=== PATIENT | female | born 1960 | race Caucasian/White ===

== ENCOUNTER 2020-06-22 07:02 | Outpatient (CLI) | payer OTHER ==
[~2020-06-22 07:02] MED LIST: BIOT1TAB2 PO; CA C1TAB39 PO; CHOL10002 PO; CYCL10TA2 PO; ESTR0.5T PO; ONDA4TAB10 PO; POLY119P4 PO; SENN8.6T15 PO; SPIR25TA5 PO; VITA1CAP PO
== END 2020-06-22 23:59 | disposition home or self-care (01) ==
LOC: CFH 07:02
PROVIDERS: ATTEND Family Medicine
DX: Z12.31 Encounter for screening mammogram for malignant neoplasm of breast (principal)
CPT/HCPCS: 77063; 77067